=== PATIENT | male | born 1965 | race Caucasian/White ===

== ENCOUNTER 2022-05-07 08:18 | Day surgery (SDC) | payer OTHER ==
[~2022-05-07] VITALS: Ht 185.4 cm; Wt 117.1 kg
== END 2022-05-07 10:38 | disposition home or self-care (01) ==
LOC: ORSCSDS 08:18
PROVIDERS: Orthopaedic Surgery
PROC: 01N50ZZ Release Median Nerve, Open Approach (ICD-10-PCS; principal; 2022-05-07 09:40)
DX: G56.03 Carpal tunnel syndrome, bilateral upper limbs (principal); G47.33 Obstructive sleep apnea (adult) (pediatric); E66.9 Obesity, unspecified; Z68.34 Body mass index [BMI] 34.0-34.9, adult
CPT/HCPCS: J0690; J2250; J3010; J7120

== ENCOUNTER 2025-06-24 06:19 | Day surgery (SDC) | payer OTHER ==
[~2025-06-24] VITALS: Ht 185.4 cm; Wt 111.6 kg
[2025-06-24] MEDS ORDERED: CeFAZolin Sodium 2,000 MG VIAL ONE (06:32)
[2025-06-24] MEDS ORDERED: IBUP200 PO (06:40)
[2025-06-24] MEDS ORDERED: ZEPBOUND7.5 MG/0.5 SQ (06:41)
[2025-06-24] MEDS ORDERED: Bupivacaine 0.5% W/EPI 1:200000 SDV 30 ML Vial ONE (06:43)
[2025-06-24] MEDS ORDERED: FentaNYL Citrate 50 MCG/ML 2 ML Injection ONE (06:53)
[2025-06-24] MEDS ORDERED: Dexamethasone Sod Phos 10 MG/ML 1ML VIAL ONE (06:55)
[2025-06-24] MEDS ORDERED: Ondansetron HCl 2 MG / ML 2ML Vial ONE (06:55)
[2025-06-24] MEDS ORDERED: C COMPLEX1000 M2 PO (06:59)
[2025-06-24] MEDS ORDERED: Vitamin B Comple1 EA PO (07:00)
[2025-06-24] MEDS ORDERED: VITAMIN D5000 UNIT PO (07:00)
[2025-06-24] MEDS ORDERED: Midazolam HCl 1MG / ML 2ML Vial ONE (07:05)
--- NOTE | 2025-06-24 07:23 | NUR ---
06/24/[address] ADVISED OF SMALL OPEN SORE NOTED ON PT'S LOWER LATERAL L RAMESH. PER DR KAMARA, OKAY TO PROCEED. VERSED 2MG IV X1 GIVEN AT [address] MCNULTY'S ORDERS AFTER CIRCULATING NURSE TMG RN SPOKE TO PATIENT.
--- NOTE | 2025-06-24 07:41 | NUR ---
06/24/[address] AWARE OF SMALL OPEN SORE LEFT LATERAL RAMESH, PEA SIZED.
[2025-06-24 09:08] VITALS: BP 123/85
== END 2025-06-24 09:53 | disposition home or self-care (01) ==
LOC: ORSCSDS 06:19
PROVIDERS: Podiatrist Foot & Ankle Surgery
PROC: 0SGQ04Z Fusion of Left Toe Phalangeal Joint with Internal Fixation Device, Open Approach (ICD-10-PCS; principal; 2025-06-24 07:30)
PROC: 0SGN04Z Fusion of Left Metatarsal-Phalangeal Joint with Internal Fixation Device, Open Approach (ICD-10-PCS; principal; 2025-06-24 07:30)
DX: M20.22 Hallux rigidus, left foot (principal); M21.612 Bunion of left foot; M20.42 Other hammer toe(s) (acquired), left foot; G47.33 Obstructive sleep apnea (adult) (pediatric); R73.03 Prediabetes; E66.9 Obesity, unspecified; Z68.32 Body mass index [BMI] 32.0-32.9, adult; Z85.828 Personal history of other malignant neoplasm of skin; Z79.85 Long-term (current) use of injectable non-insulin antidiabetic drugs
CPT/HCPCS: A6253; C1713; J0690; J1100; J2250; J2405; J2704; J3010; J7120